=== PATIENT | female | born 1970 | race Caucasian/White ===

== ENCOUNTER 2019-01-08 05:30 | Inpatient (IN) | payer OTHER ==
[2019-01-06 18:17] VITALS: BMI 28.8
[2019-01-08] MEDS ORDERED: PHENAZOPYRIDINE HCL 100 MG TABLET (FP) PO ONE (06:51)
[2019-01-08] MEDS ORDERED: ROPIVACAINE HCL 0.5% 30ML VIAL ONE (07:12)
[2019-01-08] MEDS ORDERED: BUPIVACAINE HCL/PF 0.5% (5MG/ML) 10 ML VIAL ONE (07:12)
[2019-01-08] MEDS ORDERED: MIDAZOLAM HCL 2 MG/2 ML SINGLE DOSE VIAL ONE ×2 (07:14)
[2019-01-08] MEDS ORDERED: VASOPRESSIN 20 UNITS/ML VIAL IV ONE (07:23)
[2019-01-08] MEDS ORDERED: DEXAMETHASONE SOD PHOSPHATE 4 MG/1 ML VIAL ONE (07:55)
[2019-01-08] MEDS ORDERED: PROPOFOL 20 ML ONE (07:57)
[2019-01-08] MEDS ORDERED: fentaNYL CITRATE 250 MCG/5 ML VIAL ONE (07:59)
[2019-01-08] MEDS ORDERED: ROCURONIUM BROMIDE 50 MG/5 ML VIAL ONE (08:01)
[2019-01-08] MEDS ORDERED: ceFAZolin SODIUM 1 GM VIAL IVPB ONE (08:15)
[2019-01-08] MEDS ORDERED: NEOSTIGMINE METHYLSULFATE 0.5 MG/ML - 10 ML MDV ONE (08:59)
[2019-01-08] MEDS ORDERED: GLYCOPYRROLATE 0.2 MG/1 ML VIAL ONE (08:59)
[2019-01-08] MEDS ORDERED: SIMETHICONE 80 MG TAB.CHEW (FP) PO PRN (09:22)
--- NOTE | 2019-01-08 09:28 | OP ---
Operative Note - Note: Operative Date: 01/08/19 Pre-Operative Diagnosis: Leiomyoma of uterus Operation: Open abdominal myomectomy Findings: as dictated Post-Operative Diagnosis: Same as Pre-op Surgeon: Heydi Givens Dormitory Supervisor: Hermes Richardson Anesthesiologist/SKIN FITTER: Leydi Clayton Anesthesia: General Specimens Removed: Leiomyoma (1 large, 2 small) Estimated Blood Loss (mls): 20 (ml) Drains, Volume Out (mls): 200 (ml clear urine) Fluid Volume Replaced (mls): 1,200 (ml LR) Operative Report Dictated: Yes
--- NOTE | 2019-01-08 09:28 | SURG ---
Surgery Dice Person Note Dice Person: Hermes Richardson PA-C (Suzy) Date of Service: 01/08/19 Diagnosis: Leiomyoma of uterus Procedure: Open abdominal myomectomy I was present for the entirety of the operative procedure. For further detail, please refer to operative report.
[2019-01-08] MEDS ORDERED: HYDROmorphone *PCA* 10MG/50ML DISP.SYRIN PCA ONE ×2 (09:49→10:00)
[2019-01-08] MEDS ORDERED: HYDROmorphone *PCA* 10MG/50ML DISP.SYRIN PCA SCH (10:45)
[2019-01-08] MEDS: SODIUM CHLORIDE 1,000 ML IV SCH (12:49)
[2019-01-08] MEDS: CEFAZOLIN 2 GM/D5W 2 GM/50 ML ML IVPB SCH (16:24)
[2019-01-08 19:24] LABS: BASO % 0.1 % (0-2.0); HEMATOCRIT 33.2 % (32.4-45.2); HEMOGLOBIN 11.5 GM/dL (10.7-15.3); LYMPH % 5.5 % (8-40); MCH 30.3 pg (25.7-33.7); MCHC 34.7 g/dl (32.0-36.0); MEAN CELL VOLUME 87.2 fl (80-96); MEAN PLT VOLUME 8.8 fl (7.5-11.1); MONO % 4.9 % (3.8-10.2); NEUT % 89.5 % (42.8-82.8); PLATELET COUNT 200 K/MM3 (134-434); RBC 3.81 M/mm3 (3.60-5.2); RDW 13.4 % (11.6-15.6); WHITE BLOOD COUNT 10.5 K/mm3 (4.0-10.0)
[2019-01-08 19:47] LABS: ANION GAP 7 MMOL/L (8-16); BLOOD UREA NITROGEN 11 mg/dL (7-18); CALCIUM 7.8 mg/dL (8.5-10.1); CHLORIDE 106 mmol/L (98-107); CO2 27 mmol/L (21-32); CREATININE 0.6 mg/dL (0.55-1.3); GLUCOSE,RANDOM 121 mg/dL (74-106); POTASSIUM 4.1 mmol/L (3.5-5.1); SODIUM 140 mmol/L (136-145)
[2019-01-09] MEDS: CEFAZOLIN 2 GM/D5W 2 GM/50 ML ML IVPB SCH (00:04)
[2019-01-09] MEDS: ONDANSETRON 4 MG/2 ML VIAL IVPUSH PRN ×2 (03:07→08:29)
[2019-01-09] MEDS ORDERED: HYDROmorphone *PCA* 10MG/50ML DISP.SYRIN PCA SCH (05:00)
[2019-01-09] MEDS: SODIUM CHLORIDE 1,000 ML IV SCH (06:35)
[2019-01-09 08:47] LABS: BASO % 0.3 % (0-2.0); EOS % 0.2 % (0-4.5); HEMATOCRIT 29.5 % (32.4-45.2); LYMPH % 14.7 % (8-40); MCH 29.5 pg (25.7-33.7); MCHC 33.8 g/dl (32.0-36.0); MEAN CELL VOLUME 87.2 fl (80-96); MEAN PLT VOLUME 8.7 fl (7.5-11.1); MONO % 7.5 % (3.8-10.2); NEUT % 77.3 % (42.8-82.8); PLATELET COUNT 175 K/MM3 (134-434); RBC 3.39 M/mm3 (3.60-5.2); RDW 13.9 % (11.6-15.6); WHITE BLOOD COUNT 8.5 K/mm3 (4.0-10.0)
--- NOTE | 2019-01-09 09:07 | PN ---
Progress Note (short form) - Note Progress Note: POD 1, s/p Open abdominal myomectomy Pt seen and examined. Reports some dizziness overnight and this morning, feels it is due to hunger. Denies n/v. Clears tray bedside, has not eaten yet. Has not been oob. Denies cp/sob, n/v/d. Reports no vaginal bleeding. Vital Signs Temp 98.5 F 01/09/19 06:00 Pulse 79 01/09/19 06:00 Resp 20 01/08/19 23:00 BP 111/53 L 01/09/19 06:00 Pulse Ox 96 01/08/19 21:00 Intake & Output 01/08/19 01/08/19 01/09/19 11:59 23:59 11:59 Intake Total 1700 1200 1750 Output Total 220 600 150 Balance 9331 513 2356 Intake: IV 2316 523 7441 Normal Saline - 1,000 ml 400 1200 @ 100 mls/hr IV ASDIR SAIRA Rx#:[id number] IVPB 100 50 Oral 700 500 Output: Urine 200 600 150 Bowman 600 150 Estimated Blood Loss 20 Other: Voiding Method Toilet Bowel Movement No CBC, BMP 01/09/19 07:16 Gen: awake, alert, nad. Sitting in bed with clears tray bedside Resp: unlabored on RA, cta b/l CV: rrr, s1s2 Abdomen: soft, nt/nd, dressing c/d/i Ext: soft, no calf tenderness A/P: 48 y/o F w/ PMHx htn, depression, leiomyomas, now POD 1, s/p Open abdominal myomectomy. Afebrile, VSS. Labs stable Requesting to use own home meds. 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 K 3.3 -KDUR 40mg PO x 1 dose ordered -Advance diet as tolerated -Remove bowman when pt is oob -VS per protocol -DVT prophylaxis with Lovenox 40mg qd, b/l scds -Incentive spirometry encouraged -OOB as tolerated -Will f/u dizziness and adjust pain meds as needed -Bowel regimen -Home meds to be restarted when family brings in bottles message sent to attending regarding above
[2019-01-09 09:11] LABS: ANION GAP 8 MMOL/L (8-16); BLOOD UREA NITROGEN 10 mg/dL (7-18); CALCIUM 7.3 mg/dL (8.5-10.1); CHLORIDE 104 mmol/L (98-107); CO2 25 mmol/L (21-32); CREATININE 0.6 mg/dL (0.55-1.3); GLUCOSE,RANDOM 100 mg/dL (74-106); POTASSIUM 3.3 mmol/L (3.5-5.1); SODIUM 136 mmol/L (136-145)
[2019-01-09] MEDS ORDERED: POTASSIUM CHLORIDE TABS 20 MEQ TABLET.ER (FP) PO ONE (09:14)
[2019-01-09] MEDS ORDERED: BISACODYL 5 MG TABLET.DR (FP) PO PRN (09:22)
[2019-01-09] MEDS ORDERED: HYDROCHLOROTHIAZIDE 12.5 MG CAPSULE (FP) PO SCH (10:00)
[2019-01-09] MEDS ORDERED: LOSARTAN POTASSIUM 25 MG TABLET PO SCH (10:00)
[2019-01-09] MEDS: ENOXAPARIN NA (PORCINE) 40 MG/0.4 ML DISP.SYRIN SQ SCH (10:35)
[2019-01-09] MEDS: DOCUSATE SODIUM 100 MG CAPSULE (FP) PO SCH ×2 (14:36→21:43)
[2019-01-09] MEDS ORDERED: oxyCODONE HCL 5 MG TABLET PO PRN (15:54)
[2019-01-09] MEDS ORDERED: ACETAMINOPHEN 325 MG TABLET (FP) PO PRN (15:55)
[2019-01-09] MEDS ORDERED: LACTATED RINGERS SOLUTION 1000 ML INFUS.BAG IV ONE (15:58)
--- NOTE | 2019-01-09 16:03 | PN ---
Progress Note (short form) - Note Progress Note: Pt continues to have intermittent bouts of dizziness throughout the day. BP systolic in low 100s, HR in 60-70s. Family has brought in home bp meds. Ordered for tomorrow with parameters. 500ml LR Bolus ordered for pt. Lambert remains in place, UOP 1100ml since this morning. Dr Givens is aware and will be by shortly to see pt
--- NOTE | 2019-01-09 16:09 | PN ---
Progress Note (short form) - Note Progress Note: Post op day#1.S/p Abdominal myomectomy under GA with TAP block uneventful.Patient stable and is c/o pain score of 6-7/10 on Dilaudid LIME TRIMMER.But is not using LIME TRIMMER properly so explained it to her through daughter to use it properly.Will continue LIME TRIMMER today and will f/u tomorrow.
[2019-01-09] MEDS: oxyCODONE HCL 5 MG TABLET PO PRN ×2 (16:28→23:10)
--- NOTE | 2019-01-09 18:24 | OP ---
Operative Note - Note: Operative Date: 01/08/19 Pre-Operative Diagnosis: Leiomyomatous Uterus. Abdominal Pain Operation: Abdominal Myomectomy Findings: large 8cm myoma removed Post-Operative Diagnosis: Same as Pre-op Surgeon: Heydi Givens Sql Developer Dba: Hermes Richardson Anesthesia: General Estimated Blood Loss (mls): 20 Operative Report Dictated: Yes
[2019-01-09] MEDS: IBUPROFEN 800 MG/8 ML IJ IVPB PRN (18:53)
[2019-01-10] MEDS: oxyCODONE HCL 5 MG TABLET PO PRN ×2 (05:45→12:36)
[2019-01-10] MEDS: DOCUSATE SODIUM 100 MG CAPSULE (FP) PO SCH (05:45)
[2019-01-10 06:30] VITALS: TEMP 99
[2019-01-10 08:38] LABS: BASO % 0.4 % (0-2.0); EOS % 1.6 % (0-4.5); HEMATOCRIT 31.4 % (32.4-45.2); HEMOGLOBIN 10.9 GM/dL (10.7-15.3); LYMPH % 15.8 % (8-40); MCH 30.3 pg (25.7-33.7); MCHC 34.6 g/dl (32.0-36.0); MEAN CELL VOLUME 87.6 fl (80-96); MEAN PLT VOLUME 8.6 fl (7.5-11.1); MONO % 6.1 % (3.8-10.2); NEUT % 76.1 % (42.8-82.8); PLATELET COUNT 169 K/MM3 (134-434); RBC 3.59 M/mm3 (3.60-5.2); RDW 13.5 % (11.6-15.6); WHITE BLOOD COUNT 6.4 K/mm3 (4.0-10.0)
[2019-01-10 08:56] LABS: ANION GAP 7 MMOL/L (8-16); BLOOD UREA NITROGEN 4 mg/dL (7-18); CALCIUM 7.2 mg/dL (8.5-10.1); CHLORIDE 106 mmol/L (98-107); CO2 27 mmol/L (21-32); CREATININE 0.5 mg/dL (0.55-1.3); GLUCOSE,RANDOM 100 mg/dL (74-106); POTASSIUM 3.5 mmol/L (3.5-5.1); SODIUM 140 mmol/L (136-145)
[2019-01-10 09:14] VITALS: BP 129/66; PULSE 73
[2019-01-10] MEDS: IBUPROFEN 800 MG/8 ML IJ IVPB PRN (09:32)
[2019-01-10] MEDS: ENOXAPARIN NA (PORCINE) 40 MG/0.4 ML DISP.SYRIN SQ SCH (09:33)
--- NOTE | 2019-01-10 09:59 | PN ---
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
[2019-01-10] MEDS ORDERED: HYDROCHLOROTHIAZIDE 12.5 MG CAPSULE (FP) PO SCH (10:00)
[2019-01-10] MEDS ORDERED: LOSARTAN POTASSIUM 25 MG TABLET PO SCH (10:00)
--- NOTE | 2019-01-12 13:36 | PATH ---
Surgical Pathology Report Patient Name: DEQUAN GARCIA [facility]. Rec. #: [id number] /Age/Gender: 1970 (Age: 48) / F Account: [id number] Location: [address] [place] [address] Taken: 01/08/2019 Received: 01/08/2019 Reported: 01/12/2019 Physicians: Heydi Givens M.D. Specimen(s) Received UTERINE FIBROIDS Clinical History Leiomyoma of uterus Final Diagnosis FIBROID OF UTERUS, ABDOMINAL MYOMECTOMY: 192 G, LEIOMYOMA(TA). Comment: The leiomyoma(ta) show degenerative changes and focal bizarre nuclei. No necrosis or hemorrhage identified. Electronically Signed Emilie Blevins M.D. Gross Description Received in formalin labeled "fibroid of uterus," is a 192 g aggregate of 2 orozco nodules, consistent with fibroids. The fibroids measure 2.0 and 8.0 cm in greatest dimension. Sectioning of the smaller fibroid displays orozco, firm parenchyma with whorled architecture. No areas of hemorrhage or necrosis are identified. Sectioning of the larger fibroid displays degenerative parenchyma. Leather Stitcher sections are submitted in 5 cassettes as follows: 1-smaller fibroid; 2-5-larger fibroid. /01/08/2019 saudi01/08/2019
--- NOTE | 2019-01-20 10:50 | OP ---
DATE OF OPERATION: 01/08/2019 PREOPERATIVE DIAGNOSIS: Leiomyomatous uterus and abdominal pain. OPERATION: Abdominal myomectomy. POSTOPERATIVE DIAGNOSIS: Leiomyomatous uterus and abdominal pain. SURGEON: Blade Givens MD FURNACE ERECTOR: CAMILA Salmeron MOTOR VEHICLE EXAMINER: Leydi Villaseñor CRNA ANESTHESIA: General. FINDINGS: One large 8-cm myoma and 2 small 2-cm myomas removed. ESTIMATED BLOOD LOSS: 20 mL PROCEDURE: Patient was taken to the operating room and placed in the supine position, prepped and draped in the usual sterile fashion. Timeout was performed in accordance with hospital regulation. Pfannenstiel skin incision was made with a scalpel and cautery was used to dissect the layers of the abdominal wall to the fascia. The fascia was cut in the midline with cautery. Bovie was then used to sharply dissect the rectus muscles from the fascia. Muscles split in the midline. Peritoneal cavity was entered and abdomen was examined. Leiomyomatous uterus was then exteriorized. Clip was placed in the broad ligament after it was identified. Tourniquet was placed in the clear space of the broad ligament. Pitocin was then infiltrated in the anterior aspect of the uterus. A large 8-cm myoma was palpated. After Pitocin was infiltrated, transverse incision was made and using sharp and blunt technique, the myoma was exteriorized. The endometrial cavity was not entered. Then 2-cm myomas were then removed, 2 of them. After enucleating the myomas after cauterizing these 2, in the muscle of the uterus. Incisions were then closed in layers with continuous nonlocking in the large incision followed by V-Loc on the serosa. Hemostasis achieved. Also, V-Loc suture was used on the small incisions on the uterus. No myomas were noted submucosally. Hemostasis achieved. Tourniquets were then removed. Tubes and ovaries were noted to be normal. Uterus was then interiorized. Abdominal cavity was cleaned with clean lap pads. Peritoneum was then closed after an abdominal sweep with 0 Vicryl suture continuous stitch. Muscle was approximated in the midline using 0 Vicryl suture. Fascia was then closed using 0 Vicryl suture in 2 parts. Skin was then closed using 3-0 Vicryl in subcuticular fashion. Wounds were washed and dried. Patient tolerated the procedure well. BLADE GIVENS M.D. [id number]
== END 2019-01-10 14:21 | disposition home or self-care (01) | DRG 519 ==
LOC: JSAMEDAYSX 05:30 → J6S 12:42
PROVIDERS: ADMIT Obstetrics & Gynecology; ATTEND Obstetrics & Gynecology
PROC: 0UB90ZZ Excision of Uterus, Open Approach (ICD-10-PCS; principal; 2019-01-08 08:00)
DX: D25.9 Leiomyoma of uterus, unspecified (principal); R42 Dizziness and giddiness; I10 Essential (primary) hypertension; D50.9 Iron deficiency anemia, unspecified
CPT/HCPCS: 36415; 80048; 85025; 88305-TC; 94010; 94760; J7030

== ENCOUNTER 2021-09-08 12:32 | Inpatient (IN) | payer OTHER ==
[2021-09-08] MEDS ORDERED: SODIUM CHLORIDE 1,000 ML IV SCH (13:15)
[2021-09-08 14:03] LABS: BASO % 1.1 % (0-2.0); EOS % 1.7 % (0-4.5); HEMATOCRIT 36.6 % (32.4-45.2); HEMOGLOBIN 11.8 GM/dL (10.7-15.3); LYMPH % 23.8 % (8-40); MCH 25.9 pg (25.7-33.7); MCHC 32.3 g/dl (32.0-36.0); MEAN CELL VOLUME 80.1 fl (80-96); MEAN PLT VOLUME 8.5 fl (7.5-11.1); MONO % 7.5 % (3.8-10.2); NEUT % 65.9 % (42.8-82.8); PLATELET COUNT 235 10^3/uL (134-434); RBC 4.57 M/mm3 (3.60-5.2); RDW 15.3 % (11.6-15.6); WHITE BLOOD COUNT 5.9 K/mm3 (4.0-10.0)
[2021-09-08 14:06] LABS: PH,URINE 5.5 (5.0-8.0); URINE APPEARANCE CLEAR; URINE BILIRUBIN NEGATIVE (NEGATIVE); URINE COLOR YELLOW; URINE GLUCOSE (UA) NEGATIVE (NEGATIVE); URINE KETONE NEGATIVE (NEGATIVE); URINE LEUK ESTERASE NEGATIVE (NEGATIVE); URINE NITRITE NEGATIVE (NEGATIVE); URINE PROTEIN NEGATIVE (NEGATIVE); URINE UROBILINOGEN 0.2 mg/dL (0.2-1.0)
[2021-09-08 14:07] LABS: INR 1.02 (0.83-1.09); PROTHROMBIN TIME (PATIENT) 11.4 SEC (9.7-13.0)
[2021-09-08 14:10] LABS: ACTIVATED PTT 32.5 SECONDS (25.2-36.5)
[2021-09-08 14:34] LABS: CHLORIDE 106 mmol/L (98-107); SODIUM 141 mmol/L (136-145)
[2021-09-08 14:37] LABS: ALBUMIN 3.9 g/dl (3.4-5.0); ANION GAP 4 MMOL/L (8-16); BLOOD UREA NITROGEN 8.8 mg/dL (7-18); CALCIUM 9.1 mg/dL (8.5-10.1); CO2 30 mmol/L (21-32)
[2021-09-08 14:38] LABS: GLUCOSE,RANDOM 94 mg/dL (74-106)
[2021-09-08 14:40] LABS: CHOLESTEROL 206 mg/dL (50-200); CREATININE 0.6 mg/dL (0.55-1.3); SGOT/AST 20 U/L (15-37); SGPT/ALT 28 U/L (13-61)
[2021-09-08 14:41] LABS: BILIRUBIN,TOTAL 0.3 mg/dL (0.2-1); LDL CHOLESTEROL (ONLY SJRH) 103 mg/dL (5-100); TRIGLYCERIDES 90 mg/dL (0-150)
[2021-09-08 14:42] LABS: ALK PHOS 90 U/L (45-117); TOT PROT 7.2 g/dl (6.4-8.2)
[2021-09-08 14:43] LABS: HDL CHOLESTEROL 73 mg/dL (40-60)
[2021-09-08] MEDS ORDERED: ASPIRIN 81 MG CHEWABLE TABLETS PO ONE (18:11)
[2021-09-08] MEDS ORDERED: ASPIRIN 81 MG CHEWABLE TABLETS ONE (18:43)
[2021-09-08 21:46] VITALS: BMI 28.8
[2021-09-08] MEDS ORDERED: ATORVASTATIN CA 20 MG TABLET (FP) PO SCH (22:00)
[2021-09-09] MEDS ORDERED: ACETAMINOPHEN 325 MG TABLET (FP) ONE (01:54)
[2021-09-09] MEDS ORDERED: ACETAMINOPHEN 325 MG TABLET (FP) PO ONE ×2 (03:30→16:00)
[2021-09-09 08:14] LABS: BASO % 0.8 % (0-2.0); EOS % 2.1 % (0-4.5); HEMATOCRIT 35.2 % (32.4-45.2); HEMOGLOBIN 11.6 GM/dL (10.7-15.3); LYMPH % 25.5 % (8-40); MCH 26.6 pg (25.7-33.7); MEAN CELL VOLUME 80.6 fl (80-96); MEAN PLT VOLUME 8.7 fl (7.5-11.1); MONO % 7.4 % (3.8-10.2); NEUT % 64.2 % (42.8-82.8); PLATELET COUNT 219 10^3/uL (134-434); RBC 4.37 M/mm3 (3.60-5.2); RDW 15.2 % (11.6-15.6)
[2021-09-09 08:28] LABS: ALBUMIN 3.4 g/dl (3.4-5.0); BLOOD UREA NITROGEN 10.7 mg/dL (7-18); CALCIUM 8.8 mg/dL (8.5-10.1)
[2021-09-09 08:31] LABS: BILIRUBIN,TOTAL 0.3 mg/dL (0.2-1); TOT PROT 6.6 g/dl (6.4-8.2)
[2021-09-09 08:32] LABS: CREATININE 0.6 mg/dL (0.55-1.3)
[2021-09-09] MEDS ORDERED: LOSARTAN POTASSIUM 25 MG TABLET PO SCH (10:00)
[2021-09-09] MEDS ORDERED: HYDROCHLOROTHIAZIDE 12.5 MG CAPSULE (FP) PO SCH (10:00)
[2021-09-09] MEDS ORDERED: ASPIRIN COATED 81 MG TABLET.EC PO SCH (10:00)
[2021-09-09] MEDS ORDERED: ENOXAPARIN NA (PORCINE) 40 MG/0.4 ML DISP.SYRIN SQ SCH (10:00)
[2021-09-09 14:18] VITALS: TEMP 98.2
[2021-09-09 15:14] VITALS: BP 151/81; PULSE 60
== END 2021-09-09 17:43 | disposition home or self-care (01) | DRG 47 ==
LOC: JER 12:32 → JERBED 18:16 → J4W 20:37 → OBSVTOIN 22:26
PROVIDERS: ADMIT Internal Medicine; ATTEND Internal Medicine
DX: G45.9 Transient cerebral ischemic attack, unspecified (principal); R20.0 Anesthesia of skin; R51.9 Headache, unspecified; M54.12 Radiculopathy, cervical region; I10 Essential (primary) hypertension; R07.89 Other chest pain; R42 Dizziness and giddiness
CPT/HCPCS: 36415; 70450-TC; 70498-TC; 70551-TC; 71046-TC-FY; 80053; 80061; 81003; 82550; 82962; 83036; 84484; 85025; 85610; 85730; 86850; 86900; 86901; 93005; 93010; 99285-25; C9803; G0378; Q9967; U0003; U0005

== ENCOUNTER 2021-09-17 01:20 | Emergency (ER) | payer OTHER ==
[2021-09-17 01:33] VITALS: BP 142/78; PULSE 88; TEMP 97.4; BMI 28.1
[2021-09-17] MEDS ORDERED: FLUCONAZOLE 150 MG TABLET PO ONE ×2 (03:18→03:22)
[2021-09-17 03:37] LABS: EPI CELLS 23 /uL (0-25.1); HYALINE CASTS 5 /uL (0-3.1); URINE APPEARANCE CLOUDY; URINE BACTERIA 3316 /uL (0-1359); URINE BILIRUBIN NEGATIVE (NEGATIVE); URINE COLOR DK YELLOW; URINE GLUCOSE (UA) TRACE (NEGATIVE); URINE KETONE NEGATIVE (NEGATIVE); URINE LEUK ESTERASE 3+ (NEGATIVE); URINE NITRITE POSITIVE (NEGATIVE); URINE PROTEIN TRACE (NEGATIVE); URINE RBC 32 /uL (0-23.9); URINE WBC 2021 /uL (0-25.8)
[2021-09-17] MEDS ORDERED: CEPHALEXIN MONOHYDRATE 500 MG CAPSULE (UD) PO ONE (04:30)
[2021-09-17] MEDS ORDERED: CEPHALEXIN MONOHYDRATE 500 MG CAPSULE (UD) ONE (04:39)
[2021-09-17 08:47] LABS: YEAST MODERATE (NEGATIVE)
== END 2021-09-17 05:31 | disposition home or self-care (01) ==
LOC: JER 01:20
DX: N39.0 Urinary tract infection, site not specified (principal); B37.9 Candidiasis, unspecified
CPT/HCPCS: 81003; 87086; 99283-25

== ENCOUNTER 2021-09-26 02:02 | Emergency (ER) | payer OTHER ==
[2021-09-26 02:42] VITALS: BP 166/99; PULSE 80; TEMP 98.4; BMI 28.1
[2021-09-26] MEDS ORDERED: DEXAMETHASONE SOD PHOSPHATE 10 MG/1 ML VIAL IM ONE (02:59)
[2021-09-26] MEDS ORDERED: DEXAMETHASONE SOD PHOSPHATE 10 MG/1 ML VIAL ONE (03:02)
== END 2021-09-26 04:00 ==
LOC: JER 02:02
PROC: 3E023GC Introduction of Other Therapeutic Substance into Muscle, Percutaneous Approach (ICD-10-PCS; principal; 2021-09-26)
DX: R21 Rash and other nonspecific skin eruption (principal)
CPT/HCPCS: 99284-25; J1100

== ENCOUNTER 2021-10-20 07:47 | Emergency (ER) | payer OTHER ==
[2021-10-20 07:50] VITALS: BP 161/67; PULSE 80; TEMP 981; BMI 29.2
[2021-10-20 09:37] LABS: EPI CELLS 26 /uL (0-25.1); HYALINE CASTS 1 /uL (0-3.1); URINE APPEARANCE CLEAR; URINE BACTERIA 592 /uL (0-1359); URINE BILIRUBIN NEGATIVE (NEGATIVE); URINE COLOR YELLOW; URINE GLUCOSE (UA) NEGATIVE (NEGATIVE); URINE KETONE NEGATIVE (NEGATIVE); URINE LEUK ESTERASE 2+ (NEGATIVE); URINE NITRITE NEGATIVE (NEGATIVE); URINE PROTEIN NEGATIVE (NEGATIVE); URINE RBC 5 /uL (0-23.9); URINE UROBILINOGEN 0.2 mg/dL (0.2-1.0); URINE WBC 233 /uL (0-25.8)
[2021-10-20] MEDS ORDERED: FLUCONAZOLE 150 MG TABLET PO ONE ×2 (09:59→10:18)
== END 2021-10-20 10:26 | disposition home or self-care (01) ==
LOC: JER 07:47
DX: N39.0 Urinary tract infection, site not specified (principal)
CPT/HCPCS: 81003; 82962; 87086; 99283-25

== ENCOUNTER 2021-11-11 23:12 | Emergency (ER) | payer OTHER ==
[2021-11-11 23:19] VITALS: BP 166/96; PULSE 88; BMI 31.2
[2021-11-11] MEDS ORDERED: FAMOTIDINE 20 MG TABLET PO ONE (23:46)
[2021-11-11] MEDS ORDERED: diphenhydrAMINE HCL 25 MG CAPSULE (FP) PO ONE ×2 (23:46→23:50)
[2021-11-11] MEDS ORDERED: predniSONE 20 MG TABLET (UD) PO ONE (23:47)
[2021-11-11] MEDS ORDERED: predniSONE 20 MG TABLET (UD) ONE (23:50)
[2021-11-11] MEDS ORDERED: FAMOTIDINE 20 MG TABLET ONE (23:50)
== END 2021-11-12 02:12 | disposition home or self-care (01) ==
LOC: JER 23:12
DX: T78.40XA Allergy, unspecified, initial encounter (principal)
CPT/HCPCS: 99283-25

== ENCOUNTER 2022-01-13 00:42 | Emergency (ER) | payer OTHER ==
[2022-01-13 01:17] VITALS: BP 155/84; PULSE 70; TEMP 98.1; BMI 30.2
== END 2022-01-13 01:31 | disposition home or self-care (01) ==
LOC: JER 00:42
DX: T19.2XXA Foreign body in vulva and vagina, initial encounter (principal)
CPT/HCPCS: 99281-25

== ENCOUNTER 2022-08-27 04:21 | Day surgery (SDC) | payer OTHER ==
[2022-08-23 13:29] VITALS: BMI 30.4
[2022-08-27] MEDS ORDERED: IBUPROFEN 400 MG TABLET (FP) PO PRN (07:21)
[2022-08-27] MEDS ORDERED: ACETAMINOPHEN 325 MG TABLET (FP) PO PRN (07:21)
[2022-08-27] MEDS ORDERED: PROPOFOL 40 ML ONE (12:11)
[2022-08-27] MEDS ORDERED: MIDAZOLAM HCL 2 MG/2 ML SINGLE DOSE VIAL ONE (12:12)
[2022-08-27] MEDS ORDERED: SUCCINYLCHOLINE CHLORIDE 200 MG/10 ML SYRINGE ONE (12:12)
[2022-08-27] MEDS ORDERED: LIDOCAINE HCL/PF 2% SDV 5ML VIAL ONE (12:14)
[2022-08-27] MEDS ORDERED: KETOROLAC TROMETHAMINE 30 MG/1 ML VIAL ONE (12:44)
[2022-08-27] MEDS ORDERED: DEXAMETHASONE SOD PHOSPHATE 4 MG/1 ML VIAL ONE (12:44)
[2022-08-27] MEDS ORDERED: ONDANSETRON 4 MG/2 ML VIAL ONE ×2 (12:44→14:44)
[2022-08-27] MEDS ORDERED: ceFAZolin SODIUM 1 GM VIAL IVPB ONE (13:05)
[2022-08-27] MEDS ORDERED: oxyCODONE HCL 5 MG TABLET PO PRN ×2 (13:39)
[2022-08-27] MEDS ORDERED: ACETAMINOPHEN 1000 MG/100 ML BAG IVPB PRN (13:39)
[2022-08-27] MEDS ORDERED: PROMETHAZINE HCL 25 MG/1 ML VIAL IVPUSH PRN (13:39)
[2022-08-27] MEDS ORDERED: ONDANSETRON 4 MG/2 ML VIAL IVPUSH PRN (13:39)
[2022-08-27 17:17] VITALS: RESP 18
[2022-08-27 17:27] VITALS: BP 120/60; PULSE 71; TEMP 97.9
== END 2022-08-27 17:03 | disposition home or self-care (01) ==
LOC: JASU-SURG 04:21
PROVIDERS: ATTEND Obstetrics & Gynecology
PROC: 0UJD8ZZ Inspection of Uterus and Cervix, Via Natural or Artificial Opening Endoscopic (ICD-10-PCS; 2022-08-27)
PROC: 0UB98ZZ Excision of Uterus, Via Natural or Artificial Opening Endoscopic (ICD-10-PCS; principal; 2022-08-27 11:00)
PROC: 0UDB7ZX Extraction of Endometrium, Via Natural or Artificial Opening, Diagnostic (ICD-10-PCS; 2022-08-27 11:00)
DX: N84.0 Polyp of corpus uteri (principal); N92.0 Excessive and frequent menstruation with regular cycle; D25.0 Submucous leiomyoma of uterus
CPT/HCPCS: 81025; 88305-TC; 94760

== ENCOUNTER 2024-08-18 21:59 | Emergency (ER) | payer OTHER ==
[2024-08-18 22:14] VITALS: BP 152/76; PULSE 64; RESP 18; TEMP 98.2; BMI 29.2
[2024-08-18 22:58] LABS: URINE APPEARANCE CLEAR; URINE BILIRUBIN NEGATIVE (NEGATIVE); URINE COLOR YELLOW; URINE GLUCOSE (UA) NEGATIVE (NEGATIVE); URINE KETONE NEGATIVE (NEGATIVE); URINE LEUK ESTERASE NEGATIVE (NEGATIVE); URINE NITRITE NEGATIVE (NEGATIVE); URINE PROTEIN NEGATIVE (NEGATIVE); URINE UROBILINOGEN 0.2 mg/dL (0.2-1.0)
== END 2024-08-18 23:47 | disposition home or self-care (01) ==
LOC: JER 21:59
DX: R30.0 Dysuria (principal); R10.30 Lower abdominal pain, unspecified; R35.0 Frequency of micturition
CPT/HCPCS: 81003; 87086; 99283-25